=== PATIENT | female | born 1970 | race Caucasian/White ===

== ENCOUNTER 2016-04-09 11:15 | Emergency (ER) | payer MEDICAID ==
[2016-04-09 11:48] VITALS: BP 127/91; PULSE 86; RESP 16; TEMP 98.1; O2SAT 99
[2016-04-09] MEDS ORDERED: ONDANSETRON DISINTEGRATING 4 MG TAB PO ONE (11:50)
--- NOTE | 2016-04-09 12:49 | UCPHY ---
H & P Time Seen by Provider: 04/09/16 12:36 Patient Type: Established HPI/ROS: This patient complains of cough productive of yellow sputum. She had fevers over the past 2 days as well that are subjective. She reports for the past 4 days having vomiting and diarrhea. The vomiting has resolved today but diarrhea persisted few episodes of loose stool a day. She reports that housemate to have vomiting and diarrhea currently on 1 housemate has pneumonia currently. She reports decreased appetite attributable to her nausea but she is still tolerating some p.o. intake today. No exacerbating factors. ROS: She reports mild fatigue no other constitutional symptoms. No high fevers or chills. HEENT: No complaints except for crusty right nostril with sinus pressure. Neuro: Patient complains of mild headache similar to previous headaches frontal location. No numbness tingling or weakness. Pulmonary: No pleuritic pain or respiratory distress. GI: Mild abdominal cramping. : No urinary symptoms. 10 point ROS is otherwise negative. Smoking Status: Never smoked Physical Exam: Physical Exam Vital signs are normal. General: No acute distress HEENT: No cranial tenderness Nose: Right naris: There is a small scab on the lateral aspect and yellow discharge. No sinus tenderness to percussion. Left naris clear ears: External canals and TMs clear bilaterally. Oropharynx is clear. Eyes: Pupils equal and react to light. Extraocular motions are intact. Eyes: Pupils equal react to light extraocular motions are intact Lungs: Clear to auscultation with exception of mild expiratory wheeze and rhonchi. No rales. No respiratory distress. Cardiac: Regular rate and rhythm with no murmur gallop or rub Skin: No rash or pallor. Neuro: Alert and oriented x3 with no sensorimotor deficits. Initial differential diagnosis: Viral versus bacterial bronchitis, sinusitis, tension headache Constitutional: Initial Vital Signs Temperature (C) 36.7 C 04/09/16 11:42 Heart Rate 86 04/09/16 11:42 Respiratory Rate 16 04/09/16 11:42 Blood Pressure 127/91 H 04/09/16 11:42 O2 Sat (%) 99 04/09/16 11:42 O2 Delivery Mode Room Air Allergies/Adverse Reactions: Penicillins Allergy (Severe, Verified 04/09/16 11:40) Rash Home Medications: Medication Instructions Recorded Clonazepam 10/10/15 Lexapro 10/10/15 Escitalopram Oxalate [Lexapro] 20 mg PO DAILY 20 Days 01/19/16 Albuterol Hfa Anes Only [Proair 2 puffs IH Q4 PRN #1 mdi 04/09/16 Hfa Icu (*)] Doxycycline Hyclate 100 mg PO BID #14 capsule 04/09/16 Ondansetron Odt [Zofran Odt] 4 - 8 mg PO Q4PRN PRN #4 tab 04/09/16 MDM/Departure - MDM Medications Given: Discontinued Medications Ondansetron HCl (Zofran Odt) 4 mg PO EDNOW ONE Stop: 04/09/16 11:51 Last Admin: 04/09/16 12:02 Dose: 4 mg - Depart Disposition: Home, Routine, Self-Care Clinical Impression: Nausea Headache Qualifiers: Headache type: unspecified Headache chronicity pattern: acute headache Intractability: not intractable Qualifier Code: (R51) Headache Condition: Good Instructions: Acute Bronchitis (ED), Acute Diarrhea (ED) Additional Instructions: Diagnoses: 1. Bronchitis 2. Diarrhea 3. Nausea 4. Headache NOS Plan: Drink plenty fluids Ibuprofen and Tylenol for headache Albuterol inhaler for cough, wheeze or shortness of breath Zithromax antibiotic Zofran for nausea or vomiting if needed Follow up with your nose throat physician if the scab in her nose does not resolve with treatment plan. Stand Alone Forms: Work Excuse Prescriptions: Doxycycline Hyclate 100 mg PO BID #14 capsule Albuterol Hfa Anes Only [Proair Hfa Icu (*)] 2 puffs IH Q4 PRN #1 mdi PRN Reason: Wheezing Ondansetron Odt [Zofran Odt] 4 - 8 mg PO Q4PRN PRN #4 tab PRN Reason: Vomiting Referrals: [facility],. [Primary Care Provider] - As per Instructions Trev Chandler MD [Medical Doctor] - As per Instructions - PQRS PQRS Measurement: NA
== END 2016-04-09 12:55 | disposition home or self-care (01) ==
LOC: CED 11:15
DX: R11.0 Nausea (principal); R51 Headache; R05 Cough
CPT/HCPCS: G0463-PO

== ENCOUNTER 2016-04-14 09:02 | Emergency (ER) | payer MEDICAID ==
--- NOTE | 2016-04-14 09:19 | EDPHY ---
H & P Time Seen by Provider: 04/14/16 09:10 HPI/ROS: CHIEF COMPLAINT: Seizure. HISTORY OF PRESENT ILLNESS: The patient is a 45-year-old female who presents via EMS after a seizure. She felt fine when she woke up this morning and has no history of seizures. She had bronchitis symptoms last week including cough and diarrhea for which she took antibiotics. She had no fever. This morning she was at work standing outside when she had a witnessed seizure but she remembers nothing of the episode. She did feel mild head twitches prior to the episode. She now has a headache and feels "disoriented." This is associated with mild left-sided weakness. She is oriented to self, place, and date. No recent head trauma or alcohol use. No fever, chills, chest pain, shortness of breath, palpitations, vomiting, diarrhea, urinary complaints, lightheadedness. Her father had a seizure disorder but there is no other pertinent family history. No history available to me from a witness to the event. Patient says that others said she had a seizure. REVIEW OF SYSTEMS: Aside from elements discussed in the HPI, a comprehensive 10-point review of systems was reviewed and is negative. PAST MEDICAL HISTORY: Hysterectomy, , endometriosis, shingles. SOCIAL HISTORY: No alcohol use, nonsmoker. VITAL SIGNS: Reviewed by me GENERAL: Well-developed, well-nourished, resting comfortably in no respiratory distress. HEENT: Atraumatic. Eyes: No icterus, no injection. Mouth: moist mucous membranes. No erythema or lesions. Neck: supple with no adenopathy. No meningismus. Neg kernigs and brudzinskis. LUNGS: Clear to auscultation bilaterally, no wheezes, rhonchi or rales. CARDIAC: Regular rate and rhythm, no rubs, murmurs or gallops. ABDOMEN: Soft, nontender, nondistended, bowel sounds normal. BACK: No CVA tenderness. EXTREMITIES: No trauma. No edema. Range of motion is normal throughout. NEURO: 4/5 strength in left upper and left lower extremities. Otherwise normal neuro exam. CN 2-12 intact, motor strength 5/5 on right side. Sensation intact to light touch. Mild tremors of bilateral hands. Alert and oriented x3. SKIN: Warm and dry, no rash. PSYCHIATRIC: Normal mentation, no agitation. Portions of this note were transcribed by a senior medical writer. I personally performed a history, physical exam, medical decision making, and confirmed accuracy of information the transcribed note. Smoking Status: Never smoked Constitutional: Initial Vital Signs Temperature (C) 37.1 C 04/14/16 09:02 Heart Rate 106 H 04/14/16 09:02 Respiratory Rate 18 04/14/16 09:02 Blood Pressure 156/105 H 04/14/16 09:02 O2 Sat (%) 92 04/14/16 09:02 O2 Delivery Mode Room Air Allergies/Adverse Reactions: Penicillins Allergy (Severe, Verified 04/09/16 11:40) Rash Home Medications: Medication Instructions Recorded Clonazepam 10/10/15 Lexapro 10/10/15 Escitalopram Oxalate [Lexapro] 20 mg PO DAILY 20 Days 01/19/16 Albuterol Hfa Anes Only [Proair 2 puffs IH Q4 PRN #1 mdi 04/09/16 Hfa Icu (*)] Doxycycline Hyclate 100 mg PO BID #14 capsule 04/09/16 Ondansetron Odt [Zofran Odt] 4 - 8 mg PO Q4PRN PRN #4 tab 04/09/16 Medical Decision Making - Diagnostics Imaging: Study: CT of the head. Indication: First-time seizure. Results: Normal. The study was read by the radiologist, Dr. Thapa. I viewed the images myself on the PACS system. Study: Brain MRI. Indication: First-time seizure, persitant left sided weakness. Results: Normal. The study was read by the radiologist, Dr. Sandoval. I viewed the images myself on the PACS system. Study: CT of the cervical spine. Indication: First-time seizure, neck pain, persistant left sided weakness. Results: Moderate degenerative disk disease at C5-C6. Otherwise, normal CT cervical spine. The study was read by the radiologist, Dr. Siu. I viewed the images myself on the PACS system. X-ray chest was obtained. I viewed the images myself on the PACS system. The radiologist interpretation per Dr. Siu is normal chest. I discussed the x- ray findings with the patient. ED Course/Re-evaluation: An IV was established and labs ordered. Head CT ordered. Eval for first time seizure essentially normal. On reexamination patient still reports slight weakness on left side. MRI ordered. Normal study. 1127: On reeval: reports some newly developing posterior neck pain as well as feels shaky. Slight persistant wekness on the left. CT of cspine ordered; no fracture noted. Feeling better after small amount of ativan for tremors. Utox negative. DW neurology. Will dc to home with seizure precautions and recommend close follow up wiht Neuro. Patient ambulated in ED wiht no visible difficulty. Differential Diagnosis: Diff dx considered included seizure with Lico's paralysis, stoke, hemorrhagic stroke, electrolyte abnormalities, drug or alcohol abuse or withdrawl, head injury. - Data Points Laboratory Results: Laboratory Results 04/14/16 10:05 04/14/16 10:05 04/14/16 04/14/16 04/14/16 12:25 10:05 10:05 WBC 6.26 10^3/uL 10^3/uL (3.80-9.50) RBC 4.42 10^6/uL 10^6/uL (4.18-5.33) Hgb 13.1 g/dL g/dL (12.6-16.3) Hct 38.2 % % (38.0-47.0) MCV 86.4 fL fL (81.5-99.8) MCH 29.6 pg pg (27.9-34.1) MCHC 34.3 g/dL g/dL (32.4-36.7) RDW 13.2 % % (11.5-15.2) Plt Count 232 10^3/uL 10^3/uL (150-400) MPV 10.1 fL fL (8.7-11.7) Neut % (Auto) 72.2 % % (39.3-74.2) Lymph % (Auto) 20.9 % % (15.0-45.0) [place] % (Auto) 5.4 % % (4.5-13.0) Eos % (Auto) 1.0 % % (0.6-7.6) Baso % (Auto) 0.3 % % (0.3-1.7) Nucleat RBC Rel Count 0.0 % % (0.0-0.2) Absolute Neuts (auto) 4.52 10^3/uL 10^3/uL (1.70-6.50) Absolute Lymphs (auto) 1.31 10^3/uL 10^3/uL (1.00-3.00) Absolute Monos (auto) 0.34 10^3/uL 10^3/uL (0.30-0.80) Absolute Eos (auto) 0.06 10^3/uL 10^3/uL (0.03-0.40) Absolute Basos (auto) 0.02 10^3/uL 10^3/uL (0.02-0.10) Absolute Nucleated RBC 0.00 10^3/uL 10^3/uL (0-0.01) Immature Gran % 0.2 % % (0.0-1.1) Immature Gran # 0.01 10^3/uL 10^3/uL (0.00-0.10) Sodium 145 mEq/L H mEq/L (134-144) Potassium 4.0 mEq/L mEq/L (3.5-5.2) Chloride 110 mEq/L mEq/L (97-110) Carbon Dioxide 25 mEq/l mEq/l (22-31) Anion Gap 10 mEq/L mEq/L (8-16) BUN 15 mg/dL mg/dL (7-23) Creatinine 0.7 mg/dL mg/dL (0.6-1.0) Estimated GFR > 60 Glucose 108 mg/dL H mg/dL (70-100) Calcium 9.0 mg/dL mg/dL (8.5-10.4) Urine Opiates Screen NEGATIVE (NEGATIVE) Urine Barbiturates NEGATIVE (NEGATIVE) Ur Phencyclidine Scrn NEGATIVE (NEGATIVE) Ur Amphetamine Screen NEGATIVE (NEGATIVE) U Benzodiazepines Scrn NEGATIVE (NEGATIVE) Urine Cocaine Screen NEGATIVE (NEGATIVE) U Marijuana (THC) Screen NEGATIVE (NEGATIVE) Medications Given: Discontinued Medications Sodium Chloride (Ns) 1,000 mls @ 0 mls/hr IV ONCE ONE PRN Reason: Wide Open Stop: 04/14/16 09:31 Last Admin: 04/14/16 10:00 Dose: 1,000 mls Lorazepam (Ativan Injection) 1 mg IVP EDNOW ONE Stop: 04/14/16 11:28 Last Admin: 04/14/16 11:48 Dose: 1 mg Ondansetron HCl (Zofran) 4 mg IVP EDNOW ONE Stop: 04/14/16 10:18 Last Admin: 04/14/16 10:20 Dose: 4 mg Departure - Departure Disposition: Home, Routine, Self-Care Clinical Impression: First time seizure Condition: Good Instructions: New-Onset Seizure in Adults (ED) Additional Instructions: Call Dr. Sierra, neurology, today to set up a follow up appointment. Inform him you were a patient in the ER. You are not allowed to drive or participate in other dangerous activities until you are cleared by neurology. Return to the emergency department if you experience another seizure, headache, dizziness, confusion, or other serious worsening of condition. Referrals: [facility] [Other] - As per Instructions Agutsin Sierra DO [Doctor of Osteopathy] - As per Instructions Stand Alone Forms: Work Excuse Report Scribed for: Judie Tavares Report Scribed by: Tim Dominguez Date of Report: 04/14/16 Time of Report: 09:19
[2016-04-14] MEDS ORDERED: NS 1,000 ML IV ONE (09:30)
--- NOTE | 2016-04-14 09:54 | CT ---
CT Brain (Without Contrast) at 0 941 hours History: seizure, left sided weakness. . Comparison: None. Technique: Axial computed tomographic images of the brain without contrast. Dose reduction techniqu es were utilized. Findings: Ventricles, cisterns, and sulci are normal without atrophy, hydrocephalus, midline shift/ herniation, or epidural/subdural hematomas. No acute intraparenchymal hemorrhage, definite infarct, or mass effect. Bone windows demonstrate no displaced fractures. Paranasal sinuses and mastoid air c ells are clear. Impression: 1. Normal CT brain without contrast. 2. Consider MRI of the brain without and with contrast enhancement, if there is continued clinical c oncern. Findings and recommendations discussed with Emergency Department physician, Judie Tavares MD at 9:53 hour, 04/14/2016. Final report concurs with initial preliminary interpretation.
[2016-04-14 10:12] LABS: % IMMATURE GRANULYOCYTES 0.2 % (0.0-1.1); ABSOLUTE IMMATURE GRANULOCYTES 0.01 10^3/uL (0.00-0.10); ADD DIFF? NO; ADD MORPH? NO; ADD SCAN? NO; ATYPICAL LYMPHOCYTE FLAG 0 (0-99); FRAGMENT RBC FLAG 0 (0-99); HEMATOCRIT 38.2 % (38.0-47.0); HEMOGLOBIN 13.1 g/dL (12.6-16.3); LEFT SHIFT FLG 0 (0-99); LIPEMIA HEMOLYSIS FLAG 90 (0-99); MEAN CELL HEMOGLOBIN 29.6 pg (27.9-34.1); MEAN CELL HEMOGLOBIN CONCENTR. 34.3 g/dL (32.4-36.7); MEAN CELL VOLUME 86.4 fL (81.5-99.8); MEAN PLATELET VOLUME 10.1 fL (8.7-11.7); PLATELET CLUMPS FLAG 0 (0-99); PLATELET COUNT 232 10^3/uL (150-400); RED BLOOD CELL COUNT 4.42 10^6/uL (4.18-5.33); RED CELL DISTRIBUTION WIDTH 13.2 % (11.5-15.2)
[2016-04-14] MEDS ORDERED: ONDANSETRON 4 MG/2 ML VIAL IVP ONE (10:17)
[2016-04-14 10:29] LABS: ANION GAP 10 mEq/L (8-16); CARBON DIOXIDE 25 mEq/l (22-31); CHLORIDE 110 mEq/L (97-110); CREATININE 0.7 mg/dL (0.6-1.0); GLOMERULAR FILTRATION RATE > 60; GLUCOSE 108 mg/dL (70-100); SODIUM 145 mEq/L (134-144)
--- NOTE | 2016-04-14 11:08 | MR ---
MRI of the Brain (Without Contrast) 04/14/2016 Clinical Indication: First time seizure.. Technique: T1-weighted images were acquired axially and sagittally from the foramen magnum to the v ertex. Axial and coronal FLAIR, fast T2-weighted, and diffusion-weighted axial images were obtained without contrast. Findings: The ventricles, cisterns, and sulci are normal without atrophy, hydrocephalus, midline sh ift, herniation, or epidural/subdural hematomas. No intracranial hemorrhage or masses. Diffusion-greg ghted sequence demonstrates no acute infarct. Cerebellar tonsils are in normal position. Pituitary g land is normal in size. Normal signal flow void in the superior sagittal sinus, basilar artery, and bilateral internal carotid arteries indicating patency. Paranasal sinuses and mastoid air cells are clear. Hippocampal gyri appear symmetric and normal. Impression: Normal MRI of the brain without contrast. Results called to Dr. Tavares at 11:00 AM.
[2016-04-14] MEDS ORDERED: LORazepam 2 MG/ML INJ IVP ONE (11:27)
[2016-04-14 13:35] VITALS: BP 144/57; PULSE 65; RESP 14; TEMP 97.9; O2SAT 94
== END 2016-04-14 13:35 | disposition home or self-care (01) ==
LOC: EDUNIT#
DX: R56.9 Unspecified convulsions (principal)
CPT/HCPCS: 80305; 96374; J2405

== ENCOUNTER → 2016-05-06 | Outpatient (CLI) | payer MEDICAID ==
--- NOTE | 2016-05-07 11:46 | CPEEG ---
[f rep st] ELECTROENCEPHALOGRAM DATE OF STUDY: INTRODUCTION: This is a multichannel EEG using the standard international 10- 20 system of disc electrode placement. A single EKG channel is monitored for the duration of the study. This study is undertaken for evaluation of a single generalized convulsion. Study is 30 minutes in duration. Pertinent medications include clonazepam and lamotrigine. DESCRIPTION OF RECORDING: In the maximum alert state, the patient achieved a symmetric posterior dominant rhythm of 10.5 Hz alpha that attenuated with eye opening. Activating measures including photic stimulation and hyperventilation failed to activate the tracing. The patient was noted to be drowsy as marked by attenuation of the background, anterior spread of alpha, and slow roving eye movements. No sleep architecture was observed. The EKG demonstrated normal sinus rhythm. IMPRESSION: Normal awake and drowsy EEG. CLINICAL CORRELATION: No focal lateralizing epileptiform discharges or electrographic seizures noted. /[id number]/MODL MTDD
== END ==
LOC: FCPNEURO 15:17
PROVIDERS: ATTEND Psychiatry & Neurology Neurology
DX: R56.9 Unspecified convulsions (principal)

== ENCOUNTER 2016-07-01 11:04 | Emergency (ER) | payer MEDICAID ==
[2016-07-01 11:20] VITALS: BP 122/69; PULSE 104; RESP 18; TEMP 98.4; O2SAT 95
--- NOTE | 2016-07-01 11:50 | EDPHY ---
H & P Time Seen by Provider: 07/01/16 11:14 HPI/ROS: CHIEF COMPLAINT: Right shoulder pain History by patient HISTORY OF PRESENT ILLNESS: 45 old woman with a history of a right shoulder fracture in the past who states that she also has some abnormal bone in the soft tissue presents complaining of right shoulder pain after she tripped and fell down some stairs about an hour prior to admission. Patient states she felt slightly lightheaded and dizzy, both like the room was spinning, and like she was going to pass out but did not actually lose consciousness but is not exactly sure why she fell. She says she landed with her arm out in an abnormal position for her because her range of motion is usually limited in her right arm. It has been hurting since then. She also complains of some numbness and tingling particularly in the tips of her index middle and ring finger but not her thumb or pinky. Pain is worse when she extends her elbow or her shoulder. She has not taken anything for pain at home. REVIEW OF SYSTEMS: As in HPI, and all other systems reviewed and are negative Smoking Status: Never smoked Physical Exam: General Appearance: Alert and no distress. Head: Normocephalic, atraumatic Eyes: Pupils equal and round no injection. Musculoskeletal: Neck is supple with no bony tenderness. Extremities: Right shoulder without obvious deformity, right clavicle nontender , full range of might show a right shoulder passively with slight pain, limited range of active motion due to pain, positive tenderness and posterior shoulder soft tissue, full range of motion of right elbow without pain but this elicits pain in the right shoulder, deltoid sensation intact, radial, median, and ulnar nerve intact motor and sensory, radial pulse 2 +and equal bilaterally, distal cap refill less than 2 seconds. Left side is uninvolved. Skin: No rashes or lesions. Neurologic: Awake alert oriented x3, cranial nerves 2-12 intact, normal gait, no pronator drift Constitutional: Initial Vital Signs Temperature (C) 36.9 C 07/01/16 11:17 Heart Rate 104 H 07/01/16 11:17 Respiratory Rate 18 07/01/16 11:17 Blood Pressure 122/69 H 07/01/16 11:17 O2 Sat (%) 95 07/01/16 11:17 O2 Delivery Mode Room Air Allergies/Adverse Reactions: Penicillins Allergy (Severe, Verified 07/01/16 11:14) Rash Home Medications: Medication Instructions Recorded Escitalopram Oxalate [Lexapro] 20 mg PO DAILY 20 Days 01/19/16 Estrogens, Conjugated 07/01/16 Klonopin 07/01/16 LaMICtal 07/01/16 Lidocaine 5% [Lidoderm 5% Patch 1 ea TD DAILY #30 patch 07/01/16 (*)] MDM/Departure - MDM Imaging Results: Imaging Impressions Shoulder X-Ray 07/01/16 11:17 Impression:1. No acute fracture or malalignment identified. 2. Abnormal rotator cuff region. Please see above ED Course/Re-evaluation: [age] old woman presents with right shoulder pain with a history of chronic shoulder pain injury. She is given ibuprofen which from a with some relief. X-ray shoulder with evidence of her old injury but nothing acute. Patient specifically requested tramadol or hydrocodone for her pain. We discussed how the risks of these medications outweigh the benefits for soft into injury. I am prescribing topical lidocaine patches and recommending continuing ibuprofen for the next several days as well as ice. - Depart Disposition: Home, Routine, Self-Care Clinical Impression: Acute shoulder pain due to trauma Qualifiers: Laterality: right Qualified Code(s): M25.511 - Pain in right shoulder; G89.11 - Acute pain due to trauma Condition: Good Instructions: Shoulder Pain (ED) Additional Instructions: You were seen by Dr. Teodora Parr today. Return for any worsening or new concerns. Try topical lidocaine patches for pain. Continue ibuprofen 600 mg 4 times a day. You may also take acetaminophen (Tylenol) 1000 mg every 4 hours. Stand Alone Forms: Work Excuse Prescriptions: Lidocaine 5% [Lidoderm 5% Patch (*)] 1 ea TD DAILY #30 patch Referrals: [facility],. [Primary Care Provider] - As per Instructions
== END 2016-07-01 11:57 | disposition home or self-care (01) ==
LOC: CED 11:04
DX: S49.91XA Unspecified injury of right shoulder and upper arm, initial encounter (principal); W10.9XXA Fall (on) (from) unspecified stairs and steps, initial encounter
CPT/HCPCS: 73030-PO